=== PATIENT | female | born 1940 | race Caucasian/White ===

== ENCOUNTER → 2018-05-31 | Outpatient (CLI) | payer MEDICARE ==
--- NOTE | 2018-06-05 07:28 | MR ---
EXAMINATION TYPE: MR cspine/lspine wo con DATE OF EXAM: 05/31/2018 COMPARISON: 12/24/2010 MRI lumbar spine HISTORY: Cervicalgia / Low back pain TECHNIQUE: Multiplanar, multisequence imaging of the cervical and lumbar spine is performed without I V contrast. FINDINGS: CERVICAL SPINE: The cervical spine maintains normal vertebral body heights and alignment. Posterior d isc osteophyte complexes seen at C5-6. Spinal cord signal is unremarkable throughout. Visualized port ions of the posterior fossa are grossly unremarkable with mild mucosal thickening in the sphenoid sin uses incidentally noted. Bone marrow signal is within normal limits. No suspicious extra-axial fluid collection is seen. C2-C3: There is right-sided ligamentum flavum buckling, uncovertebral hypertrophy and severe facet ar thropathy creating moderate to severe right neural foraminal narrowing. Spinal canal and left neurofo ramen are patent. C3-C4: No significant disc disease. Mild left-sided facet arthropathy without neural foraminal narrow ing or spinal canal stenosis. C4-C5: There is mild left-sided uncovertebral hypertrophy and mild bilateral facet arthropathy result ing in very mild bilateral neural foraminal narrowing. No spinal canal stenosis. C5-C6: There is a small central disc herniation effacing the ventral subarachnoid space and abutting the ventral cervical cord without alteration of cervical cord signal. There is facet arthropathy and uncovertebral hypertrophy at this level moderately narrowing the left neuroforamen, mildly narrowing the right neural foramen, and overall changes result in mild spinal canal stenosis. C6-C7: Mild disc desiccation without neuroforaminal narrowing or spinal canal stenosis. C7-T1: Mild disc desiccation without neural foraminal narrowing or spinal canal stenosis. LUMBAR SPINE: The lumbar spine vertebral bodies maintain normal vertebral body heights and alignment. Multilevel disc desiccation is seen. Conus medullaris is unremarkable terminating at T12-L1. 1.8 cm left upper pole renal lesion is incompletely characterized but likely represents a renal cyst as this is T2 hyperintense and T1 hypointense. L1-L2: Disc desiccation without spinal canal stenosis or neural foraminal narrowing. L2-L3: As seen on the prior exam of 2010 there is a broad-based disc bulge resulting in mild bilatera l neural foraminal narrowing and mild spinal canal stenosis. L3-L4: Similar to the exam of 2011 there is ligamentum flavum buckling and a broad-based disc bulge r esulting in moderate spinal canal stenosis and mild to moderate bilateral neural foraminal narrowing. L4-L5: There is a disc bulge in combination with facet arthropathy and ligamentum flavum buckling as well as a small central annular tear again resulting in mild to moderate spinal canal stenosis and mi ld bilateral neural foraminal narrowing. L5-S1: The previously seen right paracentral disc herniation is less conspicuous than on the prior ex am and has overall improved. This in combination with ligamentum flavum buckling and facet arthropath y result in moderate bilateral neural foraminal narrowing, however encroachment on the exiting L5 ner ve root on the left remains. No significant spinal canal stenosis. IMPRESSION: 1. Small central disc herniation at C5-C6 creating mild spinal canal stenosis, moderate left neural f oraminal narrowing and mild right neuroforaminal narrowing. 2. No significant progression in degenerative disc disease within the lumbar spine in comparison to t he prior exam. The previously seen right paracentral disc herniation at L5-S1 has improved from the p rior exam however there remains encroachment on the exiting L5 nerve root on the left and moderate bi lateral neural foraminal narrowing. 3. Multilevel degenerative disc disease of both the cervical spine and lumbar spine as described abov e resulting in variable degrees of neural foraminal narrowing and multilevel spinal canal stenosis.
== END | disposition home or self-care (01) ==
LOC: RADMRIMAIN 11:09
PROVIDERS: ATTEND Psychiatry & Neurology Pain Medicine
DX: M99.71 Connective tissue and disc stenosis of intervertebral foramina of cervical region (principal); M99.73 Connective tissue and disc stenosis of intervertebral foramina of lumbar region; M48.02 Spinal stenosis, cervical region; M48.061 Spinal stenosis, lumbar region without neurogenic claudication; M50.222 Other cervical disc displacement at C5-C6 level; M51.27 Other intervertebral disc displacement, lumbosacral region; M51.26 Other intervertebral disc displacement, lumbar region; M50.31 Other cervical disc degeneration, high cervical region; M51.36 Other intervertebral disc degeneration, lumbar region
CPT/HCPCS: 72141; 72148

== ENCOUNTER → 2021-04-17 | Outpatient (CLI) | payer MEDICARE ==
[2021-04-18 04:08] LABS: Calcium 10.3 mg/dL (8.7-10.3)
== END | disposition home or self-care (01) ==
LOC: LABWHC1 15:41
PROVIDERS: ATTEND Psychiatry & Neurology Pain Medicine
DX: E55.9 Vitamin D deficiency, unspecified (principal); R51.9 Headache, unspecified
CPT/HCPCS: 36415; 82306; 82310; 83970

== ENCOUNTER → 2021-06-17 | Outpatient (CLI) | payer MEDICARE | END | disposition home or self-care (01) | LOC: LABWHC1 14:00 | PROVIDERS: ATTEND Family Medicine | DX: Z20.822 Contact with and (suspected) exposure to COVID-19 (principal) | CPT/HCPCS: U0003; C9803; U0005 ==

== ENCOUNTER 2021-08-19 15:32 | Emergency (ER) | payer MEDICARE ==
[2021-08-19 16:07] VITALS: TEMP 97.9
[2021-08-19] MEDS ORDERED: oxyCODONE-APAP 7.5-325MG 1 EACH TAB PO STA (19:03)
--- NOTE | 2021-08-19 20:03 | CT ---
EXAMINATION TYPE: CT facial bones wo con DATE OF EXAM: 08/19/2021 COMPARISON: CT sinuses 09/19/2015 HISTORY: trauma, fall, lacerations and swelling around nose CT DLP: combined DLP 1003.9 mGycm Automated exposure control for dose reduction was used. The mandibular ring is intact. Temporomandibular joints appear intact. Zygomatic arches appear normal . Maxilla is intact. There is small mucus retention cyst right maxillary sinus. There is nondisplaced fracture of the nasal bone on the right side with minimal step deformity. The orbital margins are intact. There is no retro-orbital mass. There is no evidence of orbital blowo ut fracture. Frontal bone appears intact. IMPRESSION: There is an acute fracture of the nasal bone which is a change compared to old exam. There is clearing of the left side maxillary sinusitis compared to old exam.
--- NOTE | 2021-08-19 20:07 | XR ---
EXAMINATION TYPE: XR hand complete LT DATE OF EXAM: 08/19/2021 COMPARISON: NONE HISTORY: All. Pain TECHNIQUE: 3 views FINDINGS: There is narrowing and spurring at the first carpometacarpal joint. I see no fracture nor d islocation. There are no erosions. There is minor spurring at the IP joints. IMPRESSION: There is some osteoarthritis. No fracture seen.
--- NOTE | 2021-08-19 20:12 | CT ---
EXAMINATION TYPE: CT brain cspine wo con DATE OF EXAM: 08/19/2021 COMPARISON: None HISTORY: trauma, fall, lacerations and swelling around nose CT DLP: combined DLP 1003.9 mGycm Automated exposure control for dose reduction was used. Ventricles have normal size. There is no mass effect nor midline shift. There is no evidence of intra cranial hemorrhage. Calvarium is intact. There is no evidence of cerebral edema. Skull base is intact . There is normal aeration of the maxillary sinuses. Cervical vertebra have normal alignment. There is degenerative disc space narrowing at C5-6 and C6-7. There is spurring of the endplates. Facet joints are intact. There is hypertrophic cervical facet ar thropathy in the mid cervical spine. Prevertebral soft tissues are intact. IMPRESSION: Negative CT scan of the brain. Spondylotic changes in the lower cervical spine. No fracture seen.
[2021-08-19 20:24] VITALS: BP 170/89; PULSE 72; RESP 18
--- NOTE | 2021-08-19 20:54 | ED ---
Fall HPI - General Chief Complaint: Fall Stated Complaint: Fall-Facial Injury Time Seen by Provider: 08/19/21 16:05 Source: patient Mode of arrival: wheelchair - History of Present Illness Initial Comments: 80-year-old female who presents emergency room and after she sustained a fall. She reports she was with her going to breakfast when she lost her footing in the parking lot, fell forward and hit her face on the concrete. She denies losing consciousness. She began having a bloody nose. Her teeth went through the inside of her upper lip. She is not any blood thinners. Admits to a headache. No visual changes. No unilateral numbness or weakness. Denies any neck pain or back pain. No other alleviating, precipitating or modifying factors - Related Data Home Medications Medication Instructions Recorded Confirmed Atorvastatin [Lipitor] 40 mg PO HS 10/24/15 03/02/18 Fenofibrate 160 mg PO HS 10/24/15 03/02/18 Gabapentin 300 mg PO TID 10/24/15 03/02/18 Levothyroxine Sodium [Synthroid] 100 mcg PO DAILY 10/24/15 03/02/18 amLODIPine BESYLATE [Amlodipine 5 mg PO DAILY 10/24/15 03/02/18 Besylate] atenoloL [Atenolol] 50 mg PO BID 10/24/15 03/02/18 lisinopriL [Lisinopril] 20 mg PO HS 10/24/15 03/02/18 Aspirin 162 mg PO DAILY 08/10/16 03/02/18 Citalopram Hydrobromide [CeleXA] 20 mg PO DAILY 08/10/16 03/02/18 Celecoxib [CeleBREX] 200 mg PO BID 03/02/18 03/02/18 Loratadine [Claritin] 10 mg PO DAILY PRN 03/02/18 03/02/18 lisinopriL [Prinivil] 40 mg PO DAILY 03/02/18 03/02/18 Previous Rx's Medication Instructions Recorded Omeprazole [PriLOSEC] 40 mg PO DAILY #30 capsule. 08/10/16 Metoclopramide HCl [Reglan] 10 mg PO Q6HR PRN #15 tablet 03/03/18 Pantoprazole [Protonix] 40 mg PO DAILY #30 tablet. 03/03/18 Allergies Allergy/AdvReac Type Severity Reaction Status Date / Time No Known Allergies Allergy Verified 08/19/21 16:04 Review of Systems ROS Statement: Those systems with pertinent positive or pertinent negative responses have been documented in the HPI. ROS Other: All systems not noted in ROS Statement are negative. 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 History of Any Multi-Drug Resistant Organisms: None Reported Past Surgical History: Section, Cholecystectomy, Hysterectomy, Tonsillectomy Additional Past Surgical History / Comment(s): C-S X2 Past Anesthesia/Blood Transfusion Reactions: No Reported Reaction Additional Past Anesthesia/Blood Transfusion Reaction / Comment(s): ADOPTED, NO FAM HX KNOWN. Past Psychological History: Anxiety, Depression Smoking Status: Never smoker Past Alcohol Use History: Occasional Past Drug Use History: None Reported - Past Family History Mother Family Medical History: No Reported History General Exam Limitations: no limitations General appearance: alert, in no apparent distress Head exam: Present: normocephalic, normal inspection Eye exam: Present: normal appearance, PERRL, EOMI. Absent: scleral icterus, conjunctival injection, periorbital swelling ENT exam: Present: other (congestion bilateral nares. Tenderness to nasal bones. No septal hematoma. Intraoral laceration - lower lip. Not through and through measures 1.0 cm. No active bleeding. No loose teeth) Neck exam: Present: normal inspection. Absent: tenderness, meningismus, lymphadenopathy Respiratory exam: Present: normal lung sounds bilaterally. Absent: respiratory distress, wheezes, rales, rhonchi, stridor Cardiovascular Exam: Present: regular rate, normal rhythm, normal heart sounds. Absent: systolic murmur, diastolic murmur, rubs, gallop, clicks GI/Abdominal exam: Present: soft, normal bowel sounds. Absent: distended, tenderness, guarding, rebound, rigid Extremities exam: Present: normal inspection, full ROM, normal capillary refill. Absent: tenderness, pedal edema, joint swelling, calf tenderness Back exam: Present: normal inspection Neurological exam: Present: alert, oriented X3, CN II-XII intact Psychiatric exam: Present: normal affect, normal mood Skin exam: Present: warm, dry, intact, normal color. Absent: rash Course Vital Signs 08/19/21 08/19/21 16:04 20:22 Temperature 97.9 F Pulse Rate 61 72 Respiratory 20 18 Rate Blood Pressure 137/67 170/89 O2 Sat by Pulse 97 98 Oximetry Medical Decision Making - Medical Decision Making Upon arrival patient is placed in room 24. The rest of physical exam is performed. Patient is requesting a Percocet she does take this medication at home. She is sent over for a CT of her brain, cervical spine, facial bones and her left wrist. Bridging is reviewed and demonstrates no acute fractures in the cervical spine. No acute intracranial hemorrhage. There is an acute fracture of the right nasal bone. No identifiable septal hematoma. No active bleeding at this time. Patient will be discharged home in is to follow-up with her primary care doctor in 2-4 days. Return to the emergency room for any new or worsening symptoms for patient was discharged home in stable condition Disposition Clinical Impression: Fall, Concussion, Facial trauma, Nasal bone fracture Disposition: HOME SELF-CARE Condition: Stable Instructions (If sedation given, give patient instructions): Nasal Fracture (ED), Fall Prevention for Older Adults (ED) Additional Instructions: Follow up with the ENT in 7-10 days. Please see your PCP in 2-4 days. Return to the ED for any new or worsening symptoms. Is patient prescribed a controlled substance at d/c from ED?: No Referrals: Manpreet Garcia [Primary Care Provider] - 1-2 days Joni Howell MD [STAFF PHYSICIAN] - 1-2 days Time of Disposition: 20:54
== END 2021-08-19 21:06 | disposition home or self-care (01) ==
LOC: EC 15:32
DX: S06.0X0A Concussion without loss of consciousness, initial encounter (principal); S02.2XXA Fracture of nasal bones, initial encounter for closed fracture; S01.511A Laceration without foreign body of lip, initial encounter; S09.93XA Unspecified injury of face, initial encounter; I10 Essential (primary) hypertension; E78.5 Hyperlipidemia, unspecified; M19.90 Unspecified osteoarthritis, unspecified site; E07.9 Disorder of thyroid, unspecified; Z79.890 Hormone replacement therapy; Z86.73 Personal history of transient ischemic attack (TIA), and cerebral infarction without residual deficits; Z79.82 Long term (current) use of aspirin; Z79.899 Other long term (current) drug therapy; W01.198A Fall on same level from slipping, tripping and stumbling with subsequent striking against other object, initial encounter; Y92.481 Parking lot as the place of occurrence of the external cause
CPT/HCPCS: 70450; 70486; 72125; 99284

== ENCOUNTER → 2021-08-19 | Outpatient (CLI) | payer MEDICARE ==
--- NOTE | 2021-08-19 12:39 | BD ---
EXAMINATION TYPE: Axial Bone Density DATE OF EXAM: 08/19/2021 COMPARISON: NONE CLINICAL HISTORY: Height: 4 FT 10 1/2 IN Weight: 157 FRAX RISK QUESTIONS: Alcohol (3 or more units per day): NO Family History (Parent hip fracture): NONE KNOWN Glucocorticoids (More than 3mos): NO (Ex: prednisone, prednisolone, methylprednisolone, dexamethasone, and hydrocortisone). History of Fracture in Adulthood: NO Secondary Osteoporosis: 1. Type 1 Diabetes: NO 2. Hyperthyroidism: REMOVED 3. Menopause before 45: YES 4. Malnutrition: NO 5. Chronic liver disease: NO Rheumatoid Arthritis: NO Current Tobacco Use: NO RISK FACTORS HISTORY OF: Surgery to Spine/Hip(right/left)/Wrist (right/left): NO Family History of Osteoporosis: NOT KNOWN Active: NO Diet low in dairy products/other sources of calcium: NO Postmenopausal woman: HYST LATE 20'S MENOPAUSAL SYMPTOMS UNSURE Take estrogen and/or progesterone medications: TOOK HRT A LONG TIME AGO NOT NOW Lost more than 2 inches in height since high school: YES MEDICATIONS: Thyroid Medications: YES Which medication: LEVOTHYROXINE How Long: APPROX 30 YEARS Additional Medications: LEVOTHYROXINE, CHOLESTEROL MEDS, BLOOD PRESSURE MEDS, VIT D, GABAPENTIN, ANTI DEPRESSANT Additional History: EXAM MEASUREMENTS: Bone mineral densitometry was performed using the [facility]. Bone mineral density as measured about the Lumbar spine is: ----- L1-L4(G/cm2): 1.328 T Score Values are as follows: ----- L2: 1.3 ----- L3: 1.2 ----- L4: 1.2 ----- L1-L4: 1.2 Bone mineral density has: INCREASED 2.4 % since study of: 2016 Bone mineral density about the R hip (g/cm2): 0.887 Bone mineral density about the L hip (g/cm2): 0.860 T Score values are as follows: -----R Neck: -1.1 -----L Neck: -1.3 -----R Total: -0.2 -----L Total: -0.1 Bone mineral density has: DECREASED -5.6 % since study of: 2016 IMPRESSION: No evidence for osteoporosis or osteopenia NOTE: T-SCORE=SD OF THE YOUNG ADULT MEAN.
== END | disposition home or self-care (01) ==
LOC: RADBDWWP 10:28
PROVIDERS: ATTEND Psychiatry & Neurology Neurology
DX: M85.88 Other specified disorders of bone density and structure, other site (principal)
CPT/HCPCS: 77080

== ENCOUNTER → 2021-10-09 | Outpatient (CLI) | payer MEDICARE | END | disposition home or self-care (01) | LOC: LABWHC1 12:21 | PROVIDERS: ATTEND Psychiatry & Neurology Neurology | DX: Z01.818 Encounter for other preprocedural examination (principal) | CPT/HCPCS: 36415; 93005 ==

== ENCOUNTER → 2021-10-19 | Outpatient (CLI) | payer MEDICARE | END | disposition home or self-care (01) | LOC: LABWHC1 11:12 | PROVIDERS: ATTEND Psychiatry & Neurology Neurology | DX: Z01.812 Encounter for preprocedural laboratory examination (principal) | CPT/HCPCS: U0003; C9803 ==

== ENCOUNTER 2023-08-05 14:59 | Inpatient (IN) | payer MEDICARE ==
--- NOTE | 2023-08-05 15:11 | ED ---
GI Bleed HPI - General Source: patient, RN notes reviewed Mode of arrival: ambulatory Limitations: no limitations <Yue Lo - Last Filed: 08/05/23 15:08> - General Source: patient, RN notes reviewed Mode of arrival: ambulatory Limitations: no limitations <Patricia Ramirez - Last Filed: 08/05/23 21:23> - General Chief complaint: GI Bleed Stated complaint: GI bleed Time Seen by Provider: 08/05/23 15:08 - History of Present Illness Initial comments: This is an 82 year old female who presents to the emergency department for a GI bleed. States that she has been dealing with a cold and generalized abdominal pain. Today, she started to develop black stool. The coughing and congestion began 4 days ago. Not taking any blood thinners. Denies any hx of similar sx in the past. (Yue Lo) 82-year-old female presents emergency department chief complaint of possible GI bleed. Patient states that she had to bowel movements today which were much darker in color than usual. She denies any blood thinners. She states that she occasionally takes ibuprofen for aches and pains but states that recently with her cold that she has been dealing with she has been taking it more frequently. She reports that she has been taking 400 mg 3-4 times daily. She has no history of this in the past. Patient has a past medical history of hypertension, hyperlipidemia. (Patricia Ramirez) - Related Data Home Medications Medication Instructions Recorded Confirmed Atorvastatin [Lipitor] 40 mg PO HS 10/24/15 08/05/23 atenoloL [Atenolol] 50 mg PO BID 10/24/15 08/05/23 Fenofibrate Nanocrystallized 145 mg PO DAILY 08/05/23 08/05/23 [Fenofibrate] Latanoprost [Latanoprost 0.005%] 1 drop BOTH EYES HS 08/05/23 08/05/23 Levothyroxine Sodium [Synthroid] 125 mcg PO DAILY 08/05/23 08/05/23 amLODIPine [Norvasc] 5 mg PO BID 08/05/23 08/05/23 lisinopriL 40 mg PO DAILY 08/05/23 08/05/23 Allergies Allergy/AdvReac Type Severity Reaction Status Date / Time chocolate flavor AdvReac Nausea & Verified 08/05/23 19:36 Vomiting Review of Systems ROS Other: All systems not noted in ROS Statement are negative. <Yue Lo - Last Filed: 08/05/23 15:08> ROS Other: All systems not noted in ROS Statement are negative. <Patricia Ramirez - Last Filed: 08/05/23 21:23> ROS Statement: Those systems with pertinent positive or pertinent negative responses have been documented in the HPI. 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 History of Any Multi-Drug Resistant Organisms: None Reported Past Surgical History: Section, Cholecystectomy, Hysterectomy, Ton sillectomy Additional Past Surgical History / Comment(s): C-S X2 Past Anesthesia/Blood Transfusion Reactions: No Reported Reaction Additional Past Anesthesia/Blood Transfusion Reaction / Comment(s): ADOPTED, NO FAM HX KNOWN. Past Psychological History: Anxiety, Depression Smoking Status: Never smoker Past Alcohol Use History: Occasional Past Drug Use History: None Reported - Past Family History Mother Family Medical History: No Reported History <Yue Lo - Last Filed: 08/05/23 15:08> General Exam <Yue Lo - Last Filed: 08/05/23 15:08> Limitations: no limitations General appearance: alert, in no apparent distress Head exam: Present: atraumatic, normocephalic, normal inspection Eye exam: Present: normal appearance, PERRL, EOMI. Absent: scleral icterus, conjunctival injection, periorbital swelling ENT exam: Present: normal exam, mucous membranes moist Neck exam: Present: normal inspection. Absent: tenderness, meningismus, lymphadenopathy Respiratory exam: Present: normal lung sounds bilaterally. Absent: respiratory distress, wheezes, rales, rhonchi, stridor Cardiovascular Exam: Present: regular rate, normal rhythm, normal heart sounds. Absent: systolic murmur, diastolic murmur, rubs, gallop, clicks GI/Abdominal exam: Present: soft, normal bowel sounds. Absent: distended, tenderness, guarding, rebound, rigid Extremities exam: Present: normal inspection, full ROM, normal capillary refill. Absent: tenderness, pedal edema, joint swelling, calf tenderness Back exam: Present: normal inspection Neurological exam: Present: alert, oriented X3 Psychiatric exam: Present: normal affect, normal mood Skin exam: Present: warm, dry, intact, normal color. Absent: rash <Patricia Ramirez - Last Filed: 08/05/23 21:23> - General Exam Comments Initial Comments: Visual Physical Exam Vital signs reviewed General: Well-appearing, nontoxic, no acute distress. Head: Normocephalic, atraumatic Eyes: PERRLA, EOMI ENT: Airway patent Chest: Nonlabored breathing Skin: No visual rash, normal skin tone Neuro: Alert and oriented 3 Musculoskeletal: No gross abnormalities I performed the QuickNote portion of this chart. Signed Yue Lo PA-C. (Yue Lo) Course Vital Signs 08/05/23 15:07 Temperature 98.2 F Pulse Rate 67 Respiratory 20 Rate Blood Pressure 130/69 O2 Sat by Pulse 97 Oximetry Medical Decision Making - Lab Data Result diagrams: 08/05/23 16:44 08/05/23 16:44 <Patricia Ramirez - Last Filed: 08/05/23 21:23> - Medical Decision Making Was pt. sent in by a medical professional or institution ([facility], INTERNAL GRINDER, urgent care, hospital, or custodial...) When possible be specific @ -No Did you speak to anyone other than the patient for history (EMS, parent, family, police, friend...)? What history was obtained from this source @ -No Did you review nursing and triage notes (agree or disagree)? Why? @ -I reviewed and agree with nursing and triage notes Were old charts reviewed (outside hosp., previous admission, EMS record, old EKG, old radiological studies, urgent care reports/EKG's, custodial records)? Report findings @ -No old charts were reviewed Differential Diagnosis (chest pain, altered mental status, abdominal pain women, abdominal pain men, vaginal bleeding, weakness, fever, dyspnea, syncope, headache, dizziness, GI bleed, back pain, seizure, CVA, palpatations, mental health, musculoskeletal)? @ -Differential Abdominal Pain Women: Appendicitis, Cholecystitis, diverticulosis, ischemic bowel, pancreatitis, hepatitis, UTI, gastroenteritis, AAA, incarcerated hernia, bowel obstruction, constipation, inflammatory bowel, hepatitis, peptic ulcer disease, splenic infarction, perforated viscus, vulvitis, ovarian torsion, PID, kidney stone, placenta abruption, this is not meant to be an all-inclusive list EKG interpreted by me (3pts min.). @ -none X-rays interpreted by me (1pt min.). @ -None done CT interpreted by me (1pt min.). @ -None done U/S interpreted by me (1pt. min.). @ -None done What testing was considered but not performed or refused? (CT, X-rays, U/S, labs)? Why? @ -None What meds were considered but not given or refused? Why? @ -None Did you discuss the management of the patient with other professionals (professionals i.e. , PA, INTERNAL GRINDER, lab, RT, psych nurse, licensed master social worker, criminal lawyer, teacher, sales and service officer, hospice case manager)? Give summary @ -Management discussed with Dr. Avalos who recommended contact to Dr. Dru Gonsales agreeable to consult on patient as the patient is stable. Was smoking cessation discussed for >3mins.? @ -No Was critical care preformed (if so, how long)? @ -No Were there social determinants of health that impacted care today? How? (Homelessness, low income, unemployed, alcoholism, drug addiction, transportation, low edu. Level, literacy, decrease access to med. care, halfway, rehab)? @ -No Was there de-escalation of care discussed even if they declined (Discuss DNR or withdrawal of care, Hospice)? DNR status @ -No What co-morbidities impacted this encounter? (DM, HTN, Smoking, COPD, CAD, Cancer, CVA, ARF, Chemo, Hep., AIDS, mental health diagnosis, sleep apnea, morbid obesity)? @ -None Was patient admitted / discharged? Hospital course, mention meds given and route, prescriptions, significant lab abnormalities, going to OR and other pertinent info. @ -Admitted. Patient presented to the emergency department for chief complaint of 2 episodes of dark stools today. Patients vital signs stable. Laboratory studies obtained which shows hemoglobin 13.9, hematocrit 42.2; CMP shows sodium 141, potassium 4.2, chloride 108, AST 57, ALT 45, negative troponin; Hemoccult positive. Case is discussed with Dr. Avalos who recommended contact to Dr. Gonsales. Dr. Gonsales was called and agreed to consult on the patient as the patient is stable and hemoglobin 13.9. Dr. Avalos is accepting of the admission. Patient stable at time of admission. Case discussed with my attending, Dr. Kamara Undiagnosed new problem with uncertain prognosis? @ -No Drug Therapy requiring intensive monitoring for toxicity (Heparin, Nitro, Insu tianna, Cardizem)? @ -No Were any procedures done? @ -No Diagnosis/symptom? @ -Melena Acute, or Chronic, or Acute on Chronic? @ -acute Uncomplicated (without systemic symptoms) or Complicated (systemic symptoms)? @ -uncomplicated Side effects of treatment? @ -No Exacerbation, Progression, or Severe Exacerbation? @ -No Poses a threat to life or bodily function? How? (Chest pain, [place], [place], pneumonia, PE, COPD, DKA, ARF, appy, cholecystitis, CVA, Diverticulitis, Homicidal, Suicidal, threat to staff... and all critical care pts) @ -No (Patricia Ramirez) - Lab Data Lab Results 08/05/23 08/05/23 08/05/23 Range/Units 15:13 16:35 16:44 WBC 7.7 (3.8-10.6) k/uL RBC 4.65 (3.80-5.40) m/uL Hgb 13.9 (11.4-16.0) gm/dL Hct 42.2 (34.0-46.0) % MCV 90.8 (80.0-100.0) fL MCH 29.9 (25.0-35.0) pg MCHC 33.0 (31.0-37.0) g/dL RDW 13.0 (11.5-15.5) % Plt Count 346 (150-450) k/uL MPV 7.8 Neutrophils % 59 % Lymphocytes % 27 % Monocytes % 6 % Eosinophils % 5 % Basophils % 1 % Neutrophils # 4.6 (1.3-7.7) k/uL Lymphocytes # 2.1 (1.0-4.8) k/uL Monocytes # 0.4 (0-1.0) k/uL Eosinophils # 0.4 (0-0.7) k/uL Basophils # 0.1 (0-0.2) k/uL APTT (22.0-30.0) sec Sodium (137-145) mmol/L Potassium (3.5-5.1) mmol/L Chloride (98-107) mmol/L Carbon Dioxide (22-30) mmol/L Anion Gap mmol/L BUN (7-17) mg/dL Creatinine (0.52-1.04) mg/dL Est GFR (CKD-EPI)AfAm (>60 ml/min/1.73 sqM) Est GFR (CKD-EPI)NonAf (>60 ml/min/1.73 sqM) Glucose (74-99) mg/dL Plasma Lactic Acid Gonzalez (0.7-2.0) mmol/L Calcium (8.4-10.2) mg/dL Total Bilirubin (0.2-1.3) mg/dL AST (14-36) U/L ALT (4-34) U/L Alkaline Phosphatase (38-126) U/L Troponin I (0.000-0.034) ng/mL Total Protein (6.3-8.2) g/dL Albumin (3.5-5.0) g/dL Stool Occult Blood (Negative) Influenza Type A (PCR) Not Detected (Not Detectd) Influenza Type B (PCR) Not Detected (Not Detectd) RSV (PCR) Not Detected (Not Detectd) SARS-CoV-2 (PCR) Not Detected (Not Detectd) Blood Type Blood Type Confirm O Positive Blood Type Recheck Bld Type Recheck Status Antibody Screen Spec Expiration Date 08/05/23 08/05/23 08/05/23 Range/Units 16:44 16:44 16:44 WBC (3.8-10.6) k/uL RBC (3.80-5.40) m/uL Hgb (11.4-16.0) gm/dL Hct (34.0-46.0) % MCV (80.0-100.0) fL MCH (25.0-35.0) pg MCHC (31.0-37.0) g/dL RDW (11.5-15.5) % Plt Count (150-450) k/uL MPV Neutrophils % % Lymphocytes % % Monocytes % % Eosinophils % % Basophils % % Neutrophils # (1.3-7.7) k/uL Lymphocytes # (1.0-4.8) k/uL Monocytes # (0-1.0) k/uL Eosinophils # (0-0.7) k/uL Basophils # (0-0.2) k/uL APTT 23.9 (22.0-30.0) sec Sodium 141 (137-145) mmol/L Potassium 4.2 (3.5-5.1) mmol/L Chloride 108 H (98-107) mmol/L Carbon Dioxide 24 (22-30) mmol/L Anion Gap 9 mmol/L BUN 16 (7-17) mg/dL Creatinine 0.83 (0.52-1.04) mg/dL Est GFR (CKD-EPI)AfAm 77 (>60 ml/min/1.73 sqM) Est GFR (CKD-EPI)NonAf 67 (>60 ml/min/1.73 sqM) Glucose 101 H (74-99) mg/dL Plasma Lactic Acid Gonzalez 1.2 (0.7-2.0) mmol/L Calcium 9.9 (8.4-10.2) mg/dL Total Bilirubin 0.5 (0.2-1.3) mg/dL AST 57 H (14-36) U/L ALT 45 H (4-34) U/L Alkaline Phosphatase 81 (38-126) U/L Troponin I (0.000-0.034) ng/mL Total Protein 7.2 (6.3-8.2) g/dL Albumin 4.1 (3.5-5.0) g/dL Stool Occult Blood (Negative) Influenza Type A (PCR) (Not Detectd) Influenza Type B (PCR) (Not Detectd) RSV (PCR) (Not Detectd) SARS-CoV-2 (PCR) (Not Detectd) Blood Type Blood Type Confirm Blood Type Recheck Bld Type Recheck Status Antibody Screen Spec Expiration Date 08/05/23 08/05/23 08/05/23 Range/Units 16:44 16:44 17:30 WBC (3.8-10.6) k/uL RBC (3.80-5.40) m/uL Hgb (11.4-16.0) gm/dL Hct (34.0-46.0) % MCV (80.0-100.0) fL MCH (25.0-35.0) pg MCHC (31.0-37.0) g/dL RDW (11.5-15.5) % Plt Count (150-450) k/uL MPV Neutrophils % % Lymphocytes % % Monocytes % % Eosinophils % % Basophils % % Neutrophils # (1.3-7.7) k/uL Lymphocytes # (1.0-4.8) k/uL Monocytes # (0-1.0) k/uL Eosinophils # (0-0.7) k/uL Basophils # (0-0.2) k/uL APTT (22.0-30.0) sec Sodium (137-145) mmol/L Potassium (3.5-5.1) mmol/L Chloride (98-107) mmol/L Carbon Dioxide (22-30) mmol/L Anion Gap mmol/L BUN (7-17) mg/dL Creatinine (0.52-1.04) mg/dL Est GFR (CKD-EPI)AfAm (>60 ml/min/1.73 sqM) Est GFR (CKD-EPI)NonAf (>60 ml/min/1.73 sqM) Glucose (74-99) mg/dL Plasma Lactic Acid Gonzalez (0.7-2.0) mmol/L Calcium (8.4-10.2) mg/dL Total Bilirubin (0.2-1.3) mg/dL AST (14-36) U/L ALT (4-34) U/L Alkaline Phosphatase (38-126) U/L Troponin I <0.012 (0.000-0.034) ng/mL Total Protein (6.3-8.2) g/dL Albumin (3.5-5.0) g/dL Stool Occult Blood Positive H (Negative) Influenza Type A (PCR) (Not Detectd) Influenza Type B (PCR) (Not Detectd) RSV (PCR) (Not Detectd) SARS-CoV-2 (PCR) (Not Detectd) Blood Type O Positive Blood Type Confirm Blood Type Recheck No Previous Record Bld Type Recheck Status CABO Indicated Antibody Screen NEGATIVE Spec Expiration Date 08/08/2023 - 2343 Disposition <Yue Lo - Last Filed: 08/05/23 15:08> Is patient prescribed a controlled substance at d/c from ED?: No <Patricia Ramirez - Last Filed: 08/05/23 21:23> Clinical Impression: Melena Disposition: ADMITTED IP TO THIS HOSP Condition: Stable
[2023-08-05 17:08] LABS: Basophils # (A) 0.1 k/uL (0-0.2); Basophils % (A) 1 %; Eosinophils # (A) 0.4 k/uL (0-0.7); Eosinophils % (A) 5 %; HCT 42.2 % (34.0-46.0); HGB 13.9 gm/dL (11.4-16.0); Lymphocytes # (A) 2.1 k/uL (1.0-4.8); Lymphocytes % (A) 27 %; MCH 29.9 pg (25.0-35.0); MCV 90.8 fL (80.0-100.0); Mean Platelet Volume 7.8; Monocytes # (A) 0.4 k/uL (0-1.0); Monocytes % (A) 6 %; Neutrophils # (A) 4.6 k/uL (1.3-7.7); Neutrophils % (A) 59 %; Platelet Count 346 k/uL (150-450); RBC 4.65 m/uL (3.80-5.40); WBC 7.7 k/uL (3.8-10.6)
[2023-08-05 17:19] LABS: ALT 45 U/L (4-34); AST 57 U/L (14-36); African American GFR (CKD) 77 (>60 ml/min/1.73 sqM); Albumin 4.1 g/dL (3.5-5.0); Alkaline Phosphatase 81 U/L (38-126); Anion Gap 9 mmol/L; Blood Urea Nitrogen 16 mg/dL (7-17); Calcium 9.9 mg/dL (8.4-10.2); Carbon Dioxide 24 mmol/L (22-30); Chloride 108 mmol/L (98-107); Glucose 101 mg/dL (74-99); Non-African American GFR(CKD) 67 (>60 ml/min/1.73 sqM); Potassium 4.2 mmol/L (3.5-5.1); Sodium 141 mmol/L (137-145); Total Bilirubin 0.5 mg/dL (0.2-1.3); Total Protein 7.2 g/dL (6.3-8.2)
[2023-08-05] MEDS ORDERED: NALOXONE 0.4 MG/ML 1 ML VIAL IV PRN (18:37)
[2023-08-05] MEDS ORDERED: PANTOPRAZOLE 40 MG/10 ML VIAL IV SCH (18:45)
[2023-08-05] MEDS: SODIUM CHLORIDE 0.9% 1,000 ML IV SCH (19:51)
[2023-08-05] MEDS ORDERED: atenoloL 50 MG TAB PO STA (21:11)
[2023-08-05] MEDS ORDERED: amLODIPine 5 MG TAB PO STA (21:11)
[2023-08-05] MEDS ORDERED: ATORVASTATIN 40 MG TAB PO STA (21:12)
[2023-08-05] MEDS ORDERED: BENZONATATE 100 MG CAP PO STA (21:14)
[2023-08-05] MEDS ORDERED: MELATONIN 3 MG TABLET PO STA (23:26)
[2023-08-06 01:25] LABS: Basophils % (A) 1 %; Eosinophils # (A) 0.4 k/uL (0-0.7); Eosinophils % (A) 5 %; HCT 37.6 % (34.0-46.0); HGB 12.3 gm/dL (11.4-16.0); Lymphocytes # (A) 2.4 k/uL (1.0-4.8); Lymphocytes % (A) 31 %; MCH 29.9 pg (25.0-35.0); MCHC 32.9 g/dL (31.0-37.0); Monocytes # (A) 0.4 k/uL (0-1.0); Monocytes % (A) 5 %; Neutrophils # (A) 4.4 k/uL (1.3-7.7); Neutrophils % (A) 56 %; Platelet Count 312 k/uL (150-450); RBC 4.13 m/uL (3.80-5.40); WBC 7.9 k/uL (3.8-10.6)
--- NOTE | 2023-08-06 01:56 | P.HPIM ---
History of Present Illness H&P Date: 08/05/23 Patient is a 82-year-old female with a PMH of hypertension, hyperlipidemia, and history of CVA who presents to the emergency room with complaints of black tarry stools. The patient reports she had mild indigestion and night prior for which she took some Tums and when she woke up this morning, she had a tarry normal consistency bowel movement. She then had another black bowel movement which prompted her to come to the emergency room. She has since had a smaller third bowel movement. She denied experiencing abdominal pain, nausea, or vomiting. Denies prior history of abdominal bleeding or ulcers. Denies being on blood thinners. He does report that over the past 7-8 months, she has been taking Excedrin extra strength 4 tablets daily for her arthritis. Denies experienced chest discomfort or shortness of breath. Also denied lightheadedness or dizziness. Laboratory evaluation in the emergency room revealed a hemoglobin of 13.9 with lactic acid 1.2, AST 57, ALT 45, and troponin less than 0.012 with stool occult blood positive. ED documentation reviewed and case discussed with ED provider. Review of systems: Pertinent positives and negatives as discussed in HPI, a complete review of systems was performed and all other systems are negative. Physical examination: Vital signs reviewed General: non toxic, no distress, appears at stated age, overweight Derm: no unusual rashes/lesions, warm Head: atraumatic, normocephalic, symmetric Eyes: EOMI, no lid lag, anicteric sclera, pupils equal round reactive to light ENT: Nose and ears atraumatic Neck: No cervical lymphadenopathy, trachea midline, supple Mouth: no lip lesion, mucus membranes moist Cardiovascular: S1S2 reg, no murmur, positive dorsalis pedis pulse bilateral, no edema Lungs: CTA bilateral, no rhonchi, no rales, no accessory muscle use Abdominal: soft, mild epigastric tenderness, no guarding Ext: muscle strength 5 out of 5 in all 4 extremities grossly, no gross muscle atrophy, no contractures, Neuro: CN II-XI grossly intact, no gross focal neuro deficits Psych: Alert, oriented, appropriate affect Assessment: Melena, possibly secondary to PUD from aspirin (excedrin) use Mild transaminitis, unclear etiology Chronic conditions: HTN, HLD Imaging: None performed Data Review: Laboratory evaluation in the emergency room revealed a hemoglobin of 13.9 with lactic acid 1.2, AST 57, ALT 45, and troponin less than 0.012 with stool occult blood positive. Plan: Ramone consulted for possible EGD NPO for now C/w Protonix 40 mg IVP bid IVFs NS 75 ml/hr C/w home meds DVT prophylaxis: IPCDs The patient is admitted with an anticipated greater than 2 midnight stay for evaluation of melena CODE STATUS: Full Code Discussed with: Patient Anticipated discharge place: Home Past Medical History Past Medical History: CVA/TIA, Hyperlipidemia, Hypertension, Osteoarthritis (OA), Thyroid Disorder Additional Past Medical History / Comment(s): HX GRAVE'S DISEASE. CVA 2009. DEVIATED SEPTUM, SINUS PROB. History of Any Multi-Drug Resistant Organisms: None Reported Past Surgical History: Section, Cholecystectomy, Hysterectomy, Tonsillectomy Additional Past Surgical History / Comment(s): C-S X2 Past Anesthesia/Blood Transfusion Reactions: No Reported Reaction Additional Past Anesthesia/Blood Transfusion Reaction / Comment(s): ADOPTED, NO FAM HX KNOWN. Past Psychological History: Anxiety, Depression Smoking Status: Never smoker Past Alcohol Use History: Occasional Past Drug Use History: None Reported - Past Family History Mother Family Medical History: Hypertension Medications and Allergies Home Medications Medication Instructions Recorded Confirmed Type Atorvastatin [Lipitor] 40 mg PO HS 10/24/15 08/05/23 History atenoloL [Atenolol] 50 mg PO BID 10/24/15 08/05/23 History Fenofibrate Nanocrystallized 145 mg PO DAILY 08/05/23 08/05/23 History [Fenofibrate] Latanoprost [Latanoprost 0.005%] 1 drop BOTH EYES HS 08/05/23 08/05/23 History Levothyroxine Sodium [Synthroid] 125 mcg PO DAILY 08/05/23 08/05/23 History amLODIPine [Norvasc] 5 mg PO BID 08/05/23 08/05/23 History lisinopriL 40 mg PO DAILY 08/05/23 08/05/23 History Allergies Allergy/AdvReac Type Severity Reaction Status Date / Time chocolate flavor AdvReac Nausea & Verified 08/05/23 19:36 Vomiting Physical Exam Vitals: Vital Signs Temp Pulse Resp BP Pulse Ox 08/05/23 21:41 71 18 146/86 96 08/05/23 15:07 98.2 F 67 20 130/69 97 Intake and Output 08/05/23 08/05/23 08/05/23 06:59 14:59 22:59 Other: Weight 68.039 kg Results CBC & Chem 7: 08/06/23 01:08 08/05/23 16:44 Labs: Abnormal Lab Results - Last 24 Hours (Table) 08/05/23 08/05/23 Range/Units 16:44 17:30 Chloride 108 H (98-107) mmol/L Glucose 101 H (74-99) mg/dL AST 57 H (14-36) U/L ALT 45 H (4-34) U/L Stool Occult Blood Positive H (Negative)
[2023-08-06 05:15] LABS: HCT 36.8 % (34.0-46.0); HGB 12.1 gm/dL (11.4-16.0); MCH 30.2 pg (25.0-35.0); MCHC 32.9 g/dL (31.0-37.0); MCV 91.9 fL (80.0-100.0); Platelet Count 292 k/uL (150-450); RBC 4.01 m/uL (3.80-5.40); WBC 6.9 k/uL (3.8-10.6)
[2023-08-06] MEDS: SODIUM CHLORIDE 0.9% 1,000 ML IV SCH ×2 (08:25→21:19)
[2023-08-06] MEDS: PANTOPRAZOLE 40 MG/10 ML VIAL IVP SCH ×2 (08:28→20:48)
[2023-08-06 11:26] LABS: Basophils # (A) 0.05 X 10*3/uL (0.00-0.10); Basophils % (A) 0.7 %; Eosinophils % (A) 5.6 %; HCT 35.7 % (37.2-46.3); HGB 11.8 d/dL (12.0-15.0); Lymphocytes # (A) 2.46 X 10*3/uL (0.90-5.00); Lymphocytes % (A) 34.6 %; MCH 29.8 pg (27.0-32.0); MCHC 33.1 d/dL (32.0-37.0); MCV 90.2 FL (80.0-97.0); Mean Platelet Volume 10.3 FL (9.5-12.2); Monocytes # (A) 0.61 X 10*3/uL (0.20-1.00); Monocytes % (A) 8.6 %; NRBC Per 100 WBC 0 X 10*3/uL (0.00-0.01); Neutrophils # (A) 3.56 X 10*3/uL (1.80-7.70); Neutrophils % (A) 50.2 %; Platelet Count 303 X 10*3/uL (140-440); RBC 3.96 X 10*6/uL (4.10-5.20); RDW 13.2 % (11.5-14.5)
[2023-08-06 11:31] LABS: ALT 35 U/L (8-44); AST 35 U/L (13-35); Albumin 3.7 d/dL (3.8-4.9); Albumin/Globulin Ratio 1.95 Ratio (1.60-3.17); Alkaline Phosphatase 64 U/L (41-126); BUN/Creat Ratio 18.62 Ratio (12.00-20.00); Blood Urea Nitrogen 14.9 mg/dL (9.0-27.0); Carbon Dioxide 23.2 mmol/L (21.6-31.8); Chloride 109 mmol/L (96-109); Globulin 1.9 d/dL (1.6-3.3); Glucose 94 mg/dL (70-110); Potassium 3.9 mmol/L (3.5-5.5); Sodium 143 mmol/L (135-145); Total Bilirubin 0.3 mg/dL (0.3-1.2); Total Protein 5.6 d/dL (6.2-8.2)
--- NOTE | 2023-08-06 12:10 | P.PN ---
Subjective Progress Note Date: 08/06/23 Hospital course: Patient is a very pleasant 82-year-old female with a past medical history of hypertension, hyperlipidemia, and history of CVA. She presented to the emergency room on 08/05/23 with complaints of black tarry stools. She underwent full evaluation in the emergency department. Labs completed and reviewed. CBC and BMP were unremarkable. Hemoglobin was stable at 13.9 and platelet count of 346. Liver profile showing slightly elevated AST of 57 and ALT of 45 otherwise normal findings. Lactic acid normal findings at 1.2. Stool occult blood was positive. Patient was admitted under our services with consultation to general surgery. Physical exam: Patient seen and fully evaluated at bedside this morning. Patient reports migraine headache from not eating. Patient denies having any abdominal pain or discomfort, nausea, vomiting, or any other complaints at this time. Patient reports last episode of melena being overnight. Vital signs reviewed and stable. General: Nontoxic, no distress and appears stated age. Derm: Skin warm and dry, normal coloration for ethnicity. Head: Atraumatic, normocephalic and symmetric. Eyes: EOMs intact, no lid lag, and anicteric sclera Mouth: no lip lesions, mucus membranes moist Cardiovascular: regular rate and rhythm with normal S1S2, no murmur, positive posterior tibial pulses bilaterally, and cap refill < 2 seconds. Lungs: Respirations even, regular, and unlabored on room air. Lungs CTA bilaterally, no rhonchi, no rales, no wheezing, and no accessory muscle usage. Abdominal: soft, nontender to palpation, no guarding, no appreciable organomegaly Ext: ROM intact. No gross muscle atrophy, no edema, no contractures Neuro: Speech clear, face symmetrical and CN II-XII grossly intact with no noted focal neuro deficits Psych: Alert and oriented to person, place, time, and situation. Appropriate and pleasant affect. Assessment and Plan of Care: Melena, possibly secondary to PUD from aspirin (excedrin) use Elevated liver enzymes, resolved Migraine headache Hypertension Hyperlipidemia Hypothyroidism History of CVA -Hemoglobin trended overnight and remained stable currently at 12.1 from previous 13.9. -Ramone consulted to evaluate for possible EGD -NPO pending evaluation by general surgeon -Continue Protonix 40 mg IVP bid -Continue with IV fluid hydration with 0.9% NS at 75 ml/hr -Order placed for migraine cocktail consisting of [place], Benadryl, and Compazine. -Reviewed and reordered home medication including amlodipine 5 mg twice daily, atenolol 50 mg twice daily, atorvastatin 40 mg nightly, latanoprost eyedrops both eyes nightly, and levothyroxine 125 g daily. Data review: Hemoglobin trended every 6 hours overnight and remained stable currently at 12.1 from previous 13.9. Morning labs showing CBC unremarkable with WBC count of 6.9, hemoglobin 12.1, and platelet count of 292. BMP remains unremarkable and liver profile showing resolution of previous elevated liver enzymes with AST decreasing from 57 down to 35, ALT decreasing from 45 down to 35, and alkaline phosphatase of 64. Vital signs reviewed and stable. Blood pressure 136/77, heart rate 65, respiratory rate 16, temp 98.4F, SpO2 94% on room air. CODE STATUS: Full code DVT prophylaxis: SCDs Discussed with: Patient and RN Anticipated discharge date: Clinical course to determine Anticipated discharge place: Home Patient was seen independently by Nurse Pracitioner. This document was prepared using [email or web address] dictation software. Please allow for errors in multiskill operator, while rare they do occur. Objective - Vital Signs Vital signs: Vital Signs Temp 98.4 F 08/06/23 09:13 Pulse 65 08/06/23 09:13 Resp 16 08/06/23 09:13 BP 136/77 08/06/23 09:13 Pulse Ox 94 L 08/06/23 09:13 FiO2 Intake & Output 08/05/23 08/06/23 08/06/23 18:59 06:59 18:59 Weight 68.039 kg - Labs CBC & Chem 7: 08/06/23 04:46 08/06/23 04:46 Labs: Abnormal Lab Results - Last 24 Hours (Table) 08/05/23 08/05/23 Range/Units 16:44 17:30 Chloride 108 H (98-107) mmol/L Glucose 101 H (74-99) mg/dL AST 57 H (14-36) U/L ALT 45 H (4-34) U/L Stool Occult Blood Positive H (Negative)
[2023-08-06] MEDS ORDERED: PROCHLORPERAZINE INJ 10 MG/2 ML VIAL IVP STA (12:15)
[2023-08-06] MEDS ORDERED: diphenhydrAMINE 50 MG/ML 1 ML VIAL IVP STA (12:15)
[2023-08-06] MEDS ORDERED: HYDROcodone/APAP 5-325MG 1 EACH TAB PO STA (12:15)
--- NOTE | 2023-08-06 13:03 | P.GSCN ---
History of Present Illness Consult date: 08/06/23 Reason for Consult: Anemia, melanotic stool History of present illness: This 82-year-old female who presented the hospital complaints of melena external. Patient denies any obvious source of bleeding. She states he had some tarry stools the past. Past Medical History Past Medical History: CVA/TIA, Hyperlipidemia, Hypertension, Osteoarthritis (OA), Thyroid Disorder Additional Past Medical History / Comment(s): HX GRAVE'S DISEASE. CVA 2009. DEVIATED SEPTUM, SINUS PROB. History of Any Multi-Drug Resistant Organisms: None Reported Past Surgical History: Section, Cholecystectomy, Hysterectomy, Tonsillectomy Additional Past Surgical History / Comment(s): C-S X2 Past Anesthesia/Blood Transfusion Reactions: No Reported Reaction Additional Past Anesthesia/Blood Transfusion Reaction / Comm: ADOPTED, NO FAM HX KNOWN. Past Psychological History: Anxiety, Depression Smoking Status: Never smoker Past Alcohol Use History: Occasional Past Drug Use History: None Reported - Past Family History Mother Family Medical History: Hypertension Medications and Allergies Home Medications Medication Instructions Recorded Confirmed Type Atorvastatin [Lipitor] 40 mg PO HS 10/24/15 08/05/23 History atenoloL [Atenolol] 50 mg PO BID 10/24/15 08/05/23 History Fenofibrate Nanocrystallized 145 mg PO DAILY 08/05/23 08/05/23 History [Fenofibrate] Latanoprost [Latanoprost 0.005%] 1 drop BOTH EYES HS 08/05/23 08/05/23 History Levothyroxine Sodium [Synthroid] 125 mcg PO DAILY 08/05/23 08/05/23 History amLODIPine [Norvasc] 5 mg PO BID 08/05/23 08/05/23 History lisinopriL 40 mg PO DAILY 08/05/23 08/05/23 History Allergies Allergy/AdvReac Type Severity Reaction Status Date / Time chocolate flavor AdvReac Nausea & Verified 08/05/23 19:36 Vomiting Surgical - Exam Vital Signs Temp Pulse Resp BP Pulse Ox 98.2 F 67 20 130/69 97 08/05/23 15:07 08/05/23 15:07 08/05/23 15:07 08/05/23 15:07 08/05/23 15:07 - General well developed, well nourished, no distress - Eyes PERRL - ENT normal pinna - Neck no masses - Respiratory normal expansion - Cardiovascular Rhythm: regular - Abdomen Abdomen: soft, non tender Results - Labs 08/06/23 04:46 08/06/23 04:46 Abnormal Lab Results - Last 24 Hours (Table) 08/05/23 08/05/23 08/06/23 Range/Units 16:44 17:30 04:46 RBC 3.96 L (4.10-5.20) X 10*6/uL Hgb 11.8 L (12.0-15.0) d/dL Hct 35.7 L (37.2-46.3) % Eosinophils # 0.40 H (0.04-0.35) X 10*3/uL Chloride 108 H (98-107) mmol/L Glucose 101 H (74-99) mg/dL AST 57 H (14-36) U/L ALT 45 H (4-34) U/L Total Protein (6.2-8.2) d/dL Albumin (3.8-4.9) d/dL Stool Occult Blood Positive H (Negative) 08/06/23 Range/Units 04:46 RBC (4.10-5.20) X 10*6/uL Hgb (12.0-15.0) d/dL Hct (37.2-46.3) % Eosinophils # (0.04-0.35) X 10*3/uL Chloride (98-107) mmol/L Glucose (74-99) mg/dL AST (14-36) U/L ALT (4-34) U/L Total Protein 5.6 L (6.2-8.2) d/dL Albumin 3.7 L (3.8-4.9) d/dL Stool Occult Blood (Negative) Diabetes panel 08/05/23 08/06/23 Range/Units 16:44 04:46 Sodium 141 143 (137-145) mmol/L Potassium 4.2 3.9 (3.5-5.1) mmol/L Chloride 108 H 109 (98-107) mmol/L Carbon Dioxide 24 23.2 (22-30) mmol/L BUN 16 14.9 (7-17) mg/dL Creatinine 0.83 0.8 (0.52-1.04) mg/dL Glucose 101 H 94 (74-99) mg/dL Calcium 9.9 9.0 (8.4-10.2) mg/dL AST 57 H 35 (14-36) U/L ALT 45 H 35 (4-34) U/L Alkaline Phosphatase 81 64 (38-126) U/L Total Protein 7.2 5.6 L (6.3-8.2) g/dL Albumin 4.1 3.7 L (3.5-5.0) g/dL Calcium panel 08/05/23 08/06/23 Range/Units 16:44 04:46 Calcium 9.9 9.0 (8.4-10.2) mg/dL Albumin 4.1 3.7 L (3.5-5.0) g/dL Pituitary panel 08/05/23 08/06/23 Range/Units 16:44 04:46 Sodium 141 143 (137-145) mmol/L Potassium 4.2 3.9 (3.5-5.1) mmol/L Chloride 108 H 109 (98-107) mmol/L Carbon Dioxide 24 23.2 (22-30) mmol/L BUN 16 14.9 (7-17) mg/dL Creatinine 0.83 0.8 (0.52-1.04) mg/dL Glucose 101 H 94 (74-99) mg/dL Calcium 9.9 9.0 (8.4-10.2) mg/dL Adrenal panel 08/05/23 08/06/23 Range/Units 16:44 04:46 Sodium 141 143 (137-145) mmol/L Potassium 4.2 3.9 (3.5-5.1) mmol/L Chloride 108 H 109 (98-107) mmol/L Carbon Dioxide 24 23.2 (22-30) mmol/L BUN 16 14.9 (7-17) mg/dL Creatinine 0.83 0.8 (0.52-1.04) mg/dL Glucose 101 H 94 (74-99) mg/dL Calcium 9.9 9.0 (8.4-10.2) mg/dL Total Bilirubin 0.5 0.3 (0.2-1.3) mg/dL AST 57 H 35 (14-36) U/L ALT 45 H 35 (4-34) U/L Alkaline Phosphatase 81 64 (38-126) U/L Total Protein 7.2 5.6 L (6.3-8.2) g/dL Albumin 4.1 3.7 L (3.5-5.0) g/dL Assessment and Plan Assessment: Melanotic stool. Patient undergo EGD on Tuesday.
[2023-08-06] MEDS: LEVOTHYROXINE 125 MCG TAB PO SCH (15:27)
[2023-08-06] MEDS: atenoloL 50 MG TAB PO SCH (20:48)
[2023-08-06] MEDS: amLODIPine 5 MG TAB PO SCH (20:48)
[2023-08-06] MEDS: ATORVASTATIN 40 MG TAB PO SCH (20:48)
[2023-08-06] MEDS: LATANOPROST 0.005% OPHTH DROPS 2.5 ML BTL BOTH EYES SCH (20:52)
[2023-08-07] MEDS: LEVOTHYROXINE 125 MCG TAB PO SCH (06:09)
[2023-08-07] MEDS: lisinopriL 20 MG TAB PO SCH (08:20)
[2023-08-07] MEDS: atenoloL 50 MG TAB PO SCH ×2 (08:20→20:57)
[2023-08-07] MEDS: FENOFIBRATE 160 MG TAB PO SCH (08:20)
[2023-08-07] MEDS: amLODIPine 5 MG TAB PO SCH ×2 (08:20→20:57)
[2023-08-07] MEDS: PANTOPRAZOLE 40 MG/10 ML VIAL IVP SCH ×2 (08:21→20:57)
[2023-08-07 10:31] LABS: HCT 39.3 % (37.2-46.3); HGB 12.6 d/dL (12.0-15.0); MCH 29.2 pg (27.0-32.0); MCHC 32.1 d/dL (32.0-37.0); MCV 91.2 FL (80.0-97.0); Mean Platelet Volume 10.5 FL (9.5-12.2); NRBC Per 100 WBC 0 X 10*3/uL (0.00-0.01); Platelet Count 383 X 10*3/uL (140-440); RBC 4.31 X 10*6/uL (4.10-5.20); RDW 13.1 % (11.5-14.5); WBC 7.68 X 10*3/uL (4.50-10.00)
--- NOTE | 2023-08-07 10:35 | P.PN ---
Progress Note - Text Progress Note Date: 08/07/23 Patient remains stable. She denies any significant abdominal pain. On exam vital signs appear stable. Abdomen soft. Patient scheduled for EGD in the a.m.
[2023-08-07 10:39] LABS: ALT 31 U/L (8-44); AST 32 U/L (13-35); Albumin/Globulin Ratio 1.74 Ratio (1.60-3.17); Alkaline Phosphatase 68 U/L (41-126); Blood Urea Nitrogen 12.8 mg/dL (9.0-27.0); Calcium 9.4 mg/dL (8.7-10.3); Carbon Dioxide 20.9 mmol/L (21.6-31.8); Chloride 108 mmol/L (96-109); Globulin 2.3 d/dL (1.6-3.3); Glucose 128 mg/dL (70-110); Potassium 3.9 mmol/L (3.5-5.5); Sodium 142 mmol/L (135-145); Total Bilirubin 0.4 mg/dL (0.3-1.2); Total Protein 6.3 d/dL (6.2-8.2)
[2023-08-07] MEDS: SODIUM CHLORIDE 0.9% 1,000 ML IV SCH (12:08)
--- NOTE | 2023-08-07 15:38 | P.PN ---
Subjective Progress Note Date: 08/07/23 Hospital course: Patient is a very pleasant 82-year-old female with a past medical history of hypertension, hyperlipidemia, and history of CVA. She presented to the emergency room on 08/05/23 with complaints of black tarry stools. She underwent full evaluation in the emergency department. Labs completed and reviewed. CBC and BMP were unremarkable. Hemoglobin was stable at 13.9 and platelet count of 346. Liver profile showing slightly elevated AST of 57 and ALT of 45 otherwise normal findings. Lactic acid normal findings at 1.2. Stool occult blood was positive. Patient was admitted under our services with consultation to general surgery. Physical exam: Patient seen and fully evaluated at bedside this morning. Patient denies having any further episodes of melena and continues to deny having any abdominal pain or discomfort, nausea, vomiting, or any other complaints at this time. Vital signs reviewed and stable. General: Nontoxic, no distress and appears stated age. Derm: Skin warm and dry, normal coloration for ethnicity. Head: Atraumatic, normocephalic and symmetric. Eyes: EOMs intact, no lid lag, and anicteric sclera Mouth: no lip lesions, mucus membranes moist Cardiovascular: regular rate and rhythm with normal S1S2, no murmur, positive posterior tibial pulses bilaterally, and cap refill < 2 seconds. Lungs: Respirations even, regular, and unlabored on room air. Lungs CTA bilaterally, no rhonchi, no rales, no wheezing, and no accessory muscle usage. Abdominal: soft, nontender to palpation, no guarding, no appreciable organomegaly Ext: ROM intact. No gross muscle atrophy, no edema, no contractures Neuro: Speech clear, face symmetrical and CN II-XII grossly intact with no noted focal neuro deficits Psych: Alert and oriented to person, place, time, and situation. Appropriate and pleasant affect. Assessment and Plan of Care: Melena, possibly secondary to PUD from aspirin (excedrin) use Elevated liver enzymes, resolved Migraine headache, resolved Hypertension Hyperlipidemia Hypothyroidism History of CVA -Hemoglobin trended overnight and remained stable currently at 12.6 from initial 13.9. -Gen. surgery was consulted, discussed plan of care with Dr. Gonsales, plan is for patient to undergo EGD tomorrow morning. -Continue heart healthy diet, NPO at midnight -Continue Protonix 40 mg IVP bid -Continue with IV fluid hydration with 0.9% NS at 75 ml/hr -Patient to continue home medication regimen including amlodipine 5 mg twice daily, atenolol 50 mg twice daily, atorvastatin 40 mg nightly, latanoprost eyedrops both eyes nightly, and levothyroxine 125 g daily. Data review: Labs reviewed. CBC showing a stable hemoglobin at 12.6. BMP showing a slightly low bicarb of 20.9 and elevated anion gap of 13.10 otherwise normal findings. Liver profile unremarkable. Vital signs reviewed and stable. Blood pressure 145/66, heart rate 70, respiratory rate 16, temp 98.2F, SpO2 of 96% on room air. CODE STATUS: Full code DVT prophylaxis: SCDs Discussed with: Patient, general surgeon and RN Anticipated discharge date: Clinical course to determine Anticipated discharge place: Home Patient was seen independently by Nurse Pracitioner. This document was prepared using [employer] dictation software. Please allow for errors in surgical assistant, while rare they do occur. Objective - Vital Signs Vital signs: Vital Signs Temp 98.2 F 08/07/23 07:56 Pulse 70 08/07/23 07:56 Resp 16 08/07/23 07:56 BP 145/66 08/07/23 07:56 Pulse Ox 96 08/07/23 07:56 FiO2 Intake & Output 08/06/23 08/07/23 08/07/23 18:59 06:59 18:59 Weight 68.039 kg Other: Voiding Method Toilet Toilet # Voids 1 # Bowel Movements 0 - Labs CBC & Chem 7: 08/07/23 06:55 08/07/23 06:55 Labs: Abnormal Lab Results - Last 24 Hours (Table) 08/06/23 08/06/23 Range/Units 04:46 04:46 RBC 3.96 L (4.10-5.20) X 10*6/uL Hgb 11.8 L (12.0-15.0) d/dL Hct 35.7 L (37.2-46.3) % Eosinophils # 0.40 H (0.04-0.35) X 10*3/uL Total Protein 5.6 L (6.2-8.2) d/dL Albumin 3.7 L (3.8-4.9) d/dL
[2023-08-07] MEDS: IPRATROPIUM-ALBUTEROL 3 ML NEB INHALATION SCH ×2 (19:27→20:55)
[2023-08-07] MEDS: LATANOPROST 0.005% OPHTH DROPS 2.5 ML BTL BOTH EYES SCH (20:56)
[2023-08-07] MEDS: ATORVASTATIN 40 MG TAB PO SCH (20:57)
[2023-08-08] MEDS: ACETAMINOPHEN TAB 325 MG TAB PO PRN ×2 (01:09→14:23)
[2023-08-08] MEDS: SODIUM CHLORIDE 0.9% 1,000 ML IV SCH ×2 (01:10→11:15)
[2023-08-08] MEDS: LEVOTHYROXINE 125 MCG TAB PO SCH (06:09)
[2023-08-08] MEDS: lisinopriL 20 MG TAB PO SCH (08:07)
[2023-08-08] MEDS: FENOFIBRATE 160 MG TAB PO SCH (08:07)
[2023-08-08] MEDS: amLODIPine 5 MG TAB PO SCH (08:07)
[2023-08-08] MEDS: atenoloL 50 MG TAB PO SCH (08:07)
[2023-08-08] MEDS: PANTOPRAZOLE 40 MG/10 ML VIAL IVP SCH (08:07)
[2023-08-08] MEDS: IPRATROPIUM-ALBUTEROL 3 ML NEB INHALATION SCH ×3 (08:10→15:42)
[2023-08-08 08:57] VITALS: BP 152/69; PULSE 65; RESP 16; TEMP 97.9
[2023-08-08 10:55] LABS: HCT 39.3 % (37.2-46.3); HGB 12.6 d/dL (12.0-15.0); MCH 29.6 pg (27.0-32.0); MCHC 32.1 d/dL (32.0-37.0); MCV 92.3 FL (80.0-97.0); Mean Platelet Volume 10.7 FL (9.5-12.2); NRBC Per 100 WBC 0 X 10*3/uL (0.00-0.01); Platelet Count 360 X 10*3/uL (140-440); RBC 4.26 X 10*6/uL (4.10-5.20); RDW 13.1 % (11.5-14.5); WBC 8.91 X 10*3/uL (4.50-10.00)
[2023-08-08 11:08] LABS: ALT 28 U/L (8-44); AST 32 U/L (13-35); Albumin 3.9 d/dL (3.8-4.9); Alkaline Phosphatase 74 U/L (41-126); BUN/Creat Ratio 15.71 Ratio (12.00-20.00); Calcium 9.2 mg/dL (8.7-10.3); Carbon Dioxide 23.9 mmol/L (21.6-31.8); Chloride 110 mmol/L (96-109); Globulin 2.3 d/dL (1.6-3.3); Glucose 98 mg/dL (70-110); Potassium 3.9 mmol/L (3.5-5.5); Sodium 145 mmol/L (135-145); Total Bilirubin 0.3 mg/dL (0.3-1.2); Total Protein 6.2 d/dL (6.2-8.2)
[2023-08-08] MEDS ORDERED: IV FLUID CONTINUATION 1,000 ML IV ONE (14:48)
--- NOTE | 2023-08-08 15:22 | P.OP ---
Date of Procedure: 08/08/23 Preoperative Diagnosis: GI bleed Postoperative Diagnosis: Mild antral gastritis Procedure(s) Performed: EGD Anesthesia: MAC Surgeon: Palomo Gonsales Pathology: other (Antrum) Condition: stable Disposition: PACU Description of Procedure: The patient's placed on the endoscopy table lateral position. He received IV sedation. The gastroscope placed oropharynx passed in the esophagus and into the stomach. Scope was then placed through the pylorus. The first and second portion of the duodenum appeared normal. Scope was then brought back the antrum this. Mildly inflamed. A biopsies performed. Scope was then retroflexed and the remainder stomach appeared normal. The GE junction was at 40 cm. The distal esophagus appeared mildly inflamed. A biopsies performed. The proximal esophagus appeared normal. Scope withdrawn for patient. There is no evidence of any acute upper GI bleed. The patient may require colonoscopy.
--- NOTE | 2023-08-08 16:23 | P.DS ---
Providers Date of admission: 08/05/23 19:08 Expected date of discharge: 08/08/23 Attending physician: Jose M Avalos MD Consults: 08/05/23 18:37 Consult Physician Routine Consulting Provider: Palomo Gonsales Consult Reason/Comments: GI bleed Do you want consulting provider notified?: Already Contacted Primary care physician: Donn Chavez MD Hospital Course: Discharge Diagnosis: Melena, possibly secondary to PUD from aspirin (excedrin) use. Patient diagnosed with gastritis and biopsies were obtained during EGD. Patient started on Protonix 40 mg daily and instructed to avoid all NSAIDs pending follow-up appointment with general surgeon for biopsy results and discussion of scheduling a colonoscopy.. Elevated liver enzymes, resolved Migraine headache, resolved. Hypertension stable on current medication regimen. Patient to continue lisinopril 40 mg daily, amlodipine 5 mg twice daily and atenolol 50 mg twice daily.. Hyperlipidemia, continue daily medication regimen with atorvastatin 40 mg daily and fenofibrate 145 mg daily. Hypothyroidism, continue daily medication regimen with levothyroxine 125 g daily. History of CVA. Continue daily medication regimen with atorvastatin 40 mg daily and fenofibrate 145 mg daily. Hospital Course: Patient is a very pleasant 82-year-old female with a past medical history of hypertension, hyperlipidemia, and history of CVA. She presented to the emergency room on 08/05/23 with complaints of black tarry stools. She underwent full evaluation in the emergency department. Labs completed and reviewed. CBC and BMP were unremarkable. Hemoglobin was stable at 13.9 and platelet count of 346. Liver profile showing slightly elevated AST of 57 and ALT of 45 otherwise normal findings. Lactic acid normal findings at 1.2. Stool occult blood was positive. Patient was admitted under our services with consultation to general surgery. Patient underwent a 2 night hospitalization. Hemoglobin was trended throughout stay and remained stable currently 12.6. Patient had no further episodes of melena after experiencing 3 episodes on 08/05/23. She underwent an EGD with general surgery. EGD reported no evidence of acute upper GI bleed showing a mildly inflamed distal esophagus. General surgeon stating patient with mild gastritis recommend outpatient follow-up in his office in one week for follow-up evaluation and possible scheduling of colonoscopy. Medically, patient is stable at this time and free from any complaints. Patient being discharged home on Protonix 40 mg daily and to follow up outpatient with PCP in 1-2 days and gastroenterology in 1-2 weeks. Physical exam: Patient seen and fully evaluated at bedside this morning. Patient denies having any further episodes of melena and continues to deny having any abdominal pain or discomfort, nausea, vomiting, or any other complaints at this time. Vital signs reviewed and stable. General: Nontoxic, no distress and appears stated age. Derm: Skin warm and dry, normal coloration for ethnicity. Head: Atraumatic, normocephalic and symmetric. Eyes: EOMs intact, no lid lag, and anicteric sclera Mouth: no lip lesions, mucus membranes moist Cardiovascular: regular rate and rhythm with normal S1S2, no murmur, positive posterior tibial pulses bilaterally, and cap refill < 2 seconds. Lungs: Respirations even, regular, and unlabored on room air. Lungs CTA bilaterally, no rhonchi, no rales, no wheezing, and no accessory muscle usage. Abdominal: soft, nontender to palpation, no guarding, no appreciable organomegaly Ext: ROM intact. No gross muscle atrophy, no edema, no contractures Neuro: Speech clear, face symmetrical and CN II-XII grossly intact with no noted focal neuro deficits Psych: Alert and oriented to person, place, time, and situation. Appropriate and pleasant affect. A total of 35 minutes of time were spent preparing this complex discharge summary. Pt was discharged on 08/08/23 at 4:22 PM. Patient was seen independently by Nurse Practitioner. This document was prepared using [employer] dictation software. Please allow for errors in bobtailer while rare they do occur. Patient Condition at Discharge: Stable Plan - Discharge Summary Discharge Rx Participant: No New Discharge Prescriptions: New Pantoprazole [Protonix] 40 mg PO DAILY 30 Days #30 tab Continue Atorvastatin [Lipitor] 40 mg PO HS atenoloL [Atenolol] 50 mg PO BID Levothyroxine Sodium [Synthroid] 125 mcg PO DAILY amLODIPine [Norvasc] 5 mg PO BID Fenofibrate Nanocrystallized [Fenofibrate] 145 mg PO DAILY Latanoprost [Latanoprost 0.005%] 1 drop BOTH EYES HS lisinopriL 40 mg PO DAILY Discharge Medication List Atorvastatin [Lipitor] 40 mg PO HS 10/24/15 [History] atenoloL [Atenolol] 50 mg PO BID 10/24/15 [History] Fenofibrate Nanocrystallized [Fenofibrate] 145 mg PO DAILY 08/05/23 [History] Latanoprost [Latanoprost 0.005%] 1 drop BOTH EYES HS 08/05/23 [History] Levothyroxine Sodium [Synthroid] 125 mcg PO DAILY 08/05/23 [History] amLODIPine [Norvasc] 5 mg PO BID 08/05/23 [History] lisinopriL 40 mg PO DAILY 08/05/23 [History] Pantoprazole [Protonix] 40 mg PO DAILY 30 Days #30 tab 08/08/23 [Rx] Follow up Appointment(s)/Referral(s): Donn Chavez MD [Primary Care Provider] - 1-2 days Palomo Gonsales MD [STAFF PHYSICIAN] - 1 Week Patient Instructions/Handouts: Gastritis (DC), Diet for Stomach Ulcers and Gastritis (GEN), Upper Endoscopy (DC) Activity/Diet/Wound Care/Special Instructions: Activity: As tolerated. Take breaks as needed. Diet: Follow diet as recommended for stomach ulcers/gastritis that has been provided to you with your discharge packet. Special Instructions: Take all of your medications as directed and remember to keep all of your doctor's appointments and follow-up as needed. Avoid NSAIDs including aspirin, Pepto-Bismol, ibuprofen, Motrin, naproxen, or Aleve Thank you for allowing us to participate in your care, it was truly a pleasure having you for our patient!!! Discharge Disposition: HOME SELF-CARE
--- NOTE | 2023-08-08 16:36 | P.PN ---
Subjective Progress Note Date: 08/08/23 Patient seen at 1120 this morning CHIEF COMPLAINT: GI bleed HISTORY OF PRESENT ILLNESS: Patient sitting at bedside chair. She denies any blood in her stools. Denies any abdominal pain. Denies any nausea or vomiting. Scheduled for EGD today. Vital stable. Hemoglobin 12.6 stable PHYSICAL EXAM: VITAL SIGNS: Reviewed. GENERAL: Well-developed in no acute distress. ABDOMEN: Soft. Nondistended. Nontender. NEUROLOGIC: Alert and oriented. Cranial nerves II through XII grossly intact. ASSESSMENT: 1. GI bleed PLAN: -Patient scheduled for EGD today with Dr. Gonsales Physician Wrapping Machine Helper note has been reviewed by physician. Signing provider agrees with the documented findings, assessment, and plan of care. Objective - Vital Signs Vital signs: Vital Signs Temp 97.9 F 08/08/23 07:55 Pulse 68 08/08/23 08:23 Resp 16 08/08/23 07:55 BP 152/69 08/08/23 07:55 Pulse Ox 96 08/08/23 07:55 FiO2 Intake & Output 08/07/23 08/08/23 08/08/23 18:59 06:59 18:59 Intake Total 200 Balance 200 Intake: IV 200 Other: Voiding Method Toilet Toilet Toilet # Voids 1 2 - Labs CBC & Chem 7: 08/08/23 05:58 08/08/23 05:58 Labs: Abnormal Lab Results - Last 24 Hours (Table) 08/08/23 Range/Units 05:58 Chloride 110 H (96-109) mmol/L Microbiology - Last 24 Hours (Table) 08/05/23 17:30 Stool Culture - Final Stool
== END 2023-08-08 16:52 | disposition home or self-care (01) | DRG 379 ==
LOC: EC 14:59 → 6NMEDSUR 19:08
PROVIDERS: ADMIT Student in an Organized Health Care Education/Training Program; ATTEND Student in an Organized Health Care Education/Training Program
PROC: 0DB78ZX Excision of Stomach, Pylorus, Via Natural or Artificial Opening Endoscopic, Diagnostic (ICD-10-PCS; 2023-08-08)
PROC: 0DB58ZX Excision of Esophagus, Via Natural or Artificial Opening Endoscopic, Diagnostic (ICD-10-PCS; principal; 2023-08-08 08:00)
DX: K27.4 Chronic or unspecified peptic ulcer, site unspecified, with hemorrhage (principal); T39.015A Adverse effect of aspirin, initial encounter; K29.71 Gastritis, unspecified, with bleeding; E03.9 Hypothyroidism, unspecified; E78.5 Hyperlipidemia, unspecified; F32.A Depression, unspecified; F41.9 Anxiety disorder, unspecified; G43.909 Migraine, unspecified, not intractable, without status migrainosus; I10 Essential (primary) hypertension; Z79.890 Hormone replacement therapy; Z79.899 Other long term (current) drug therapy; Z82.49 Family history of ischemic heart disease and other diseases of the circulatory system; Z86.73 Personal history of transient ischemic attack (TIA), and cerebral infarction without residual deficits; R74.01 Elevation of levels of liver transaminase levels; E05.00 Thyrotoxicosis with diffuse goiter without thyrotoxic crisis or storm; J34.2 Deviated nasal septum
CPT/HCPCS: 36415; 43239; 80053; 82272; 83605; 83735; 84484; 85025; 85027; 85730; 86850; 86900; 86901; 87045; 87046; 87636; 88305; 94640; 96361; 96374; 96375; 96376; 99285

== ENCOUNTER 2023-08-25 09:19 | Day surgery (SDC) | payer MEDICARE ==
[2023-08-22 15:36] VITALS: BMI 30.2
[~2023-08-25 09:19] MED LIST: LACTATED RINGERS 1,000 ML IV SCH; LIDOCAINE 1% (10MG/ML) FOR IV START INTRADERMA PRN; ONDANSETRON 4 MG/2 ML VIAL IVP PRN
[2023-08-25 09:54] VITALS: RESP 16; TEMP 98.7
[2023-08-25] MEDS ORDERED: PROPOFOL 10 MG/ML 20 ML VIAL IV ONE (10:27)
[2023-08-25] MEDS ORDERED: LIDOCAINE 1% INJ 10MG/ML (20 ML MDV) ONE (10:27)
--- NOTE | 2023-08-25 10:41 | P.OP ---
Date of Procedure: 08/25/23 Preoperative Diagnosis: GI bleed Postoperative Diagnosis: Normal colonoscopy Procedure(s) Performed: Colonoscopy Anesthesia: MAC Surgeon: Palomo Gonsales Pathology: none sent Condition: stable Disposition: PACU Description of Procedure: The patient's placed on the endoscopy table in the lateral position. She received IV sedation. Digital rectal exam was performed. This revealed no abnormalities. The flexible colonoscope was then placed patient anus and passed throughout the entire colon. The ileocecal valve was visualized. The cecum, ascending and transverse colon appeared normal. The descending and sigmoid colon appeared normal. Scope was then brought back the rectum and this appeared normal. Scope withdrawn for patient. There was no evidence of any GI bleed.
[2023-08-25 11:07] VITALS: BP 113/60; PULSE 62
== END 2023-08-25 11:30 | disposition home or self-care (01) ==
LOC: ORWHC2ENDO 09:19
PROVIDERS: ATTEND Surgery
DX: K92.2 Gastrointestinal hemorrhage, unspecified (principal); I10 Essential (primary) hypertension; E78.5 Hyperlipidemia, unspecified; M19.90 Unspecified osteoarthritis, unspecified site; E07.9 Disorder of thyroid, unspecified; F32.A Depression, unspecified; E05.00 Thyrotoxicosis with diffuse goiter without thyrotoxic crisis or storm; F41.9 Anxiety disorder, unspecified; Z79.899 Other long term (current) drug therapy; Z90.49 Acquired absence of other specified parts of digestive tract; Z79.890 Hormone replacement therapy; Z86.73 Personal history of transient ischemic attack (TIA), and cerebral infarction without residual deficits; Z90.710 Acquired absence of both cervix and uterus
CPT/HCPCS: 45378; J2001; J2704

== ENCOUNTER → 2023-11-08 | Outpatient (CLI) | payer MEDICARE ==
--- NOTE | 2023-11-15 09:24 | CT ---
EXAMINATION TYPE: CT chest wo con CT DLP: 924.6 mGycm, Automated exposure control for dose reduction was used. DATE OF EXAM: 11/08/2023 1:38 PM COMPARISON: None. . 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 Thin section axial supine and prone images through the chest are submitted. Contrast used: mL of (None if empty) Oral contrast used: (None if empty) FINDINGS: Exam is limited without IV contrast. LOWER NECK: No significant findings. HEART: The heart is mildly to moderately enlarged..Increased density within the coronary arteries lik eleni moderate calcifications and/or stents VASCULATURE: Mild/moderate atherosclerotic calcification of the aorta, greatest along the arch. Ascen ding aorta 3.3 cm, descending 2.5 cm. Unremarkable noncontrast appearance of the pulmonary arteries. Pulmonary trunk is borderline mildly enlarged at 3 cm, this can be seen with early pulmonary hyperten colby. MEDIASTINUM: No gross evidence of adenopathy. LUNGS/ PLEURA: Minimal bibasilar scarring or atelectasis. No acute consolidation, pleural effusion, o r pneumothorax. No sizable lung nodule or mass. AIRWAY: Central airways patent and unremarkable. MUSCULOSKELETAL: Mild diffuse degenerative changes. No clearly acute bony abnormality. SOFT TISSUES: Unremarkable. UPPER ABDOMEN: Mild/moderate hepatic steatosis. Partially visualized cholecystectomy clips. A few simeon cifications in the distal pancreatic body region and near the pancreatic head, could reflect chronic pancreatitis changes or vascular calcifications. Partially visualized left renal hypodensities, with the appearance of cysts. Calcifications in the splenic hilum are likely arterial. IMPRESSION: 1. No significant pulmonary abnormality. Mild bibasilar atelectasis. 2. Mild to moderate cardiomegaly with moderate coronary artery calcifications. 3. Pulmonary trunk is borderline mildly enlarged at 3 cm, this can be seen with early pulmonary hype rtension.
== END | disposition home or self-care (01) ==
LOC: RADCTMAIN 13:20
PROVIDERS: ATTEND Internal Medicine Critical Care Medicine
DX: I51.7 Cardiomegaly (principal); J84.9 Interstitial pulmonary disease, unspecified; I25.10 Atherosclerotic heart disease of native coronary artery without angina pectoris
CPT/HCPCS: 71250

== ENCOUNTER → 2023-12-01 | Outpatient (CLI) | payer MEDICARE ==
--- NOTE | 2023-12-01 15:10 | XR ---
EXAMINATION TYPE: XR hand complete bilateral DATE OF EXAM: 12/01/2023 COMPARISON: None HISTORY: Pain TECHNIQUE: Bilateral hands 3 views each FINDINGS: Right hand: There is diffuse loss of joint space throughout the right hand. No acute fractures are ev ident some soft tissue swelling may be over the dorsum of the metacarpal phalangeal joint space. Left hand: There is diffuse loss of disc height throughout the left hand. Some advanced degenerative changes at the first left carpometacarpal junction. No acute fractures are evident. Findings may be s lightly progressive from the left hand comparison study of 08/19/2021 IMPRESSION: 1. Degenerative change with Diffuse loss of disc height through proximal and distal interphalangeal joint spaces as well as the metacarpal phalangeal joint spaces and within the first carpometacarpal j unction
== END | disposition home or self-care (01) ==
LOC: LABWHC1 14:12
PROVIDERS: ATTEND Family Medicine
DX: M79.643 Pain in unspecified hand (principal)
CPT/HCPCS: 36415; 86038; 86431

== ENCOUNTER → 2024-02-23 | Outpatient (CLI) | payer MEDICARE ==
[2024-02-23 22:02] LABS: ALT 40 U/L (8-44); AST 61 U/L (13-35); Albumin 4.1 g/dL (3.8-4.9); Albumin/Globulin Ratio 1.64 Ratio (1.60-3.17); Alkaline Phosphatase 83 U/L (41-126); Bilirubin, Conjugated <0.20 mg/dL (0.20-0.40); Bilirubin,Unconjugated >0.20 mg/dL (0.20-1.00); Globulin 2.5 g/dL (1.6-3.3); Total Bilirubin 0.4 mg/dL (0.3-1.2); Total Protein 6.6 g/dL (6.2-8.2)
[2024-02-24 00:45] LABS: HIV 2 AB Non-Reactive (Non-Reactive); HIV AB P24 Non-Reactive (Non-Reactive); HIV P24 AG Non-Reactive (Non-Reactive)
== END | disposition home or self-care (01) ==
LOC: LABWHC1 12:58
PROVIDERS: ATTEND Family Medicine
DX: R76.8 Other specified abnormal immunological findings in serum (principal); R74.01 Elevation of levels of liver transaminase levels
CPT/HCPCS: 36415; 80076; 86709; 87390

== ENCOUNTER → 2024-03-09 | Outpatient (CLI) | payer MEDICARE ==
[2024-03-09 16:42] LABS: Hepatitis A Antibody IgM Reactive (Nonreactive); Hepatitis B Core IgM Nonreactive (Nonreactive); Hepatitis B Surface Antigen Nonreactive (Nonreactive); Hepatitis C IgG Antibody Nonreactive (Nonreactive)
[2024-03-09 18:03] LABS: % Iron Saturation 20.31 (12.00-45.00); Ferritin 76.1 ng/mL (10.0-291.0)
== END | disposition home or self-care (01) ==
LOC: LABWHC1 11:50
PROVIDERS: ATTEND Family Medicine
DX: R74.01 Elevation of levels of liver transaminase levels (principal)
CPT/HCPCS: 36415; 80074; 82728; 83036; 83540; 83550

== ENCOUNTER → 2024-03-09 | Outpatient (CLI) | payer MEDICARE ==
--- NOTE | 2024-03-09 12:33 | US ---
EXAMINATION TYPE: US liver DATE OF EXAM: 03/09/2024 COMPARISON: CT 2018 CLINICAL INDICATION: Female, 83 years old with history of R74.01 ELEVATION OF LEVELS OF LIVER TRANSAM INASE L; Hx cholecystectomy, appendectomy. Elevated transaminase level. TECHNIQUE: Multiple sonographic images of the right upper quadrant are obtained. FINDINGS: EXAM MEASUREMENTS: Liver Length: 17.1 cm Gallbladder Wall: Surgically absent CBD: 0.35 cm Right Kidney: 9.5 x 4.8 x 4.7 cm SUPERVISOR HAND SILVERING NOTES: *Exam is limited due to gas. Pancreas: Appears hyperechoic, tail was not visualized Liver: Appears very coarse/heterogeneous with increased echogenicity and attenuation. Measures upper limits* Gallbladder: Surgically absent Evidence for sonographic Mai's sign: No CBD: Appears wnl Right Kidney: *Hypoechoic area seen upper/mid measuring 1.3 x 1.0 x 1.0 cm. IMPRESSION: 1. Mildly enlarged liver with coarse attenuating echo texture consistent with fatty infiltration. 2. Mildly atrophic right kidney with cortical thinning but no solid renal mass, calcification or hydr onephrosis. 3. Limited evaluation of the pancreas due to bowel gas. 4. Cholecystectomy
--- NOTE | 2024-03-09 16:23 | BD ---
EXAMINATION TYPE: Axial Bone Density DATE OF EXAM: 03/09/2024 CLINICAL HISTORY: 83 years old Female. ICD-10 CODE: POSTMENO Z780 Height: 58.5 in Weight: 166 lbs FRAX RISK QUESTIONS: Secondary Osteoporosis: 2. Hyperthyroidism: yes 3. Menopause before 45: partial hysterectomy age 30 RISK FACTORS HISTORY OF: MEDICATIONS: Thyroid Medications: yes Which medication: Levothyroxine How Lon+ years EXAM MEASUREMENTS: Bone mineral densitometry was performed using the [employer] System. l spine surgery 2021 Bone mineral density about the R hip (g/cm2): 0.993 Bone mineral density about the L hip (g/cm2): 1.031 T Score values are as follows: -----R Neck: -1.1 -----L Neck: -1.3 -----R Total: -0.1 -----L Total: 0.2 Z Score values are as follows: -----R Neck: 0.9 -----L Neck: 0.7 -----R Total: 1.7 -----L Total: 2.0 Bone mineral density has: Increased 2.3% since study of: 08/19/21 Bone mineral density about the L Wrist (g/cm2): 0.679 T Score values are as follows: -----Dist. R+U: 0.8 -----Prox. R+U: -0.2 -----Radius total: 0.1 Z Score values are as follows: -----Dist. R+U: 3.6 -----Prox. R+U: 2.7 -----Radius total: 2.7 Bone mineral density baseline FRAX%s: The graph provided illustrates a 11.9% chance for a major osteoporotic fx and a 2.7% chance f or the hips probability for fx in 10 years time. IMPRESSION: Normal (Values between +1 and -1 indicate normal bone mass). Consider repeating this study in 5 year s or sooner if there is some new clinical indication. NOTE: T-SCORE=SD OF THE YOUNG ADULT MEAN.
== END | disposition home or self-care (01) ==
LOC: RADBDWWP 10:45
PROVIDERS: ATTEND Family Medicine
DX: R74.01 Elevation of levels of liver transaminase levels (principal); R16.0 Hepatomegaly, not elsewhere classified; N26.1 Atrophy of kidney (terminal); R14.3 Flatulence; R76.8 Other specified abnormal immunological findings in serum; K76.0 Fatty (change of) liver, not elsewhere classified; Z90.49 Acquired absence of other specified parts of digestive tract; Z78.0 Asymptomatic menopausal state
CPT/HCPCS: 76705; 77080